=== PATIENT | male | born 2000 | race Caucasian/White ===

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

== ENCOUNTER 2020-07-23 16:05 | Emergency (ER) | payer OTHER ==
[2020-07-23 16:27] VITALS: BP 125/79; PULSE 100; TEMP 100.4; BMI 20.5
== END 2020-07-23 16:54 | disposition home or self-care (01) ==
LOC: FER 16:05
DX: U07.1 COVID-19 (principal)
CPT/HCPCS: 99284-25; C9803; U0003